=== PATIENT | male | born 1960 | race Caucasian/White ===

== ENCOUNTER 2016-09-04 03:55 | Emergency (ER) | payer SELFPAY ==
[2016-09-04 03:56] VITALS: BMI 40.3
[2016-09-04 04:12] VITALS: TEMP 98.4
[2016-09-04] MEDS ORDERED: CYCLOBENZAPRINE 10 MG TAB PO STA (04:12)
[2016-09-04] MEDS ORDERED: OXYCODONE HCL 5 MG TABLET PO STA (04:12)
[2016-09-04] MEDS ORDERED: IBUPROFEN 600 MG TAB PO STA (04:12)
--- NOTE | 2016-09-04 04:16 | EDPRACDOC ---
- General Information Chief Complaint: Back Pain Stated Complaint: NECK & SHOULDER PAIN Time Seen by Provider: 09/04/16 04:05 Information Source: Patient Mode Of Arrival: Walk Home Medications: Home Medications Alprazolam [Xanax] 1 mg PO Q6-8H #30 tablet 06/19/15 Aspirin 325 mg PO DAILYWM #100 tablet 06/19/15 Atorvastatin Calcium [Lipitor] 40 mg PO HS #30 tablet 06/19/15 Carvedilol [Coreg] 3.125 mg PO BID #60 tablet 06/19/15 Nitroglycerin Sublingual Tab [NTG (NitroStat Sublingual Tab)] 0.4 mg SL PRN PRN #30 tablet 06/19/15 Cyclobenzaprine HCl [Flexeril] 5 mg PO Q8H PRN #20 tablet 09/04/16 Ibuprofen Tablet [Motrin] 600 mg PO Q6H #30 tab 09/04/16 Oxycodone HCl [Roxicodone] 5 mg PO Q4-6H PRN #15 tablet 09/04/16 Allergies/Adverse Reactions: Allergies Allergy/AdvReac Type Severity Reaction Status Date / Time codeine Allergy Nausea/Vomi Verified 09/04/16 04:13 ting - History of Present Illness Onset: 1 day HPI: PT PRESENTS WITH RIGHT UPPER BACK PAIN LIKE PRIOR EPISODES OF TORTICOLLIS. Pain Location: Reports: Right, Thoracic Pain Radiates To: Reports: None Relevant History: Reports: Chronic back pain Pain Severity: Reports: Moderate Pain Quality: Reports: Aching, Sharp Worsened By: Reports: Movement Associated Signs and Symptoms: Denies: Abdominal Pain, Dysuria, Hematuria, Nausea, Vomiting ED Past Medical History - History Reviewed Yes Nurses notes reviewed and agree except as marked - Patient Medical History Cardiac History: Reports: Hypertension, Hypercholesterolemia GI/ History: Reports: Kidney Stones Musculoskeletal History: Reports: Arthritis (and neck pain starting 04/2015.), Gout Psychological History: Denies: Depression, Substance Use Disorder Systemic History: Denies: Anemia Surgical History: Reports: Other (sebaceous cyst on back removal 2002 Dr. Evans. Izabel white) - Family Medical History Reports: Hypertension, Diabetes (Mother), Cardiac Disorders (MGF: had [place], thinks he was over 60 yo. Mother: CHF 61yo.), Respiratory Disorders (Father : lung problems from asbestos, alive in late 70's.) - Social Medical History Smoking Status: Heavy tobacco smoker (5 or more cigarettes/day or daily pipe/ cigar) Social History: Denies: Substance Use Disorder Lives In: Home EDM Review of Systems - Review of Systems ROS Negative Except as Marked: Yes All systems reviewed and were negative except as marked Musculoskeletal: Back (RIGHT UPPER THORACIC PAIN) - Physical Exam Constitutional: Alert Oriented to: Time, Person, Place Last recorded Vital Signs: Last Vital Signs Temp 98.4 F 09/04/16 04:06 Pulse 85 09/04/16 04:06 Resp 18 09/04/16 04:06 BP 177/89 09/04/16 04:06 Pulse Ox 98 09/04/16 04:06 Oxygen Pulse Oxygen Saturation 98 O2 Device Room Air Oxygen Flow Rate Fraction of Inspired Oxygen ( FIO2) - HEENT Head: negative: Deformity, Laceration Eye Exam: negative: Conjunctival Injection, Pale Conjunctiva Oropharynx: negative: Membranes Dry Nose: negative: Congestion, Discharge Neck: negative: Limited ROM - Respiratory/Cardiovascular Respiratory: Normal - CTA. negative: Accessory Muscle Use, Diminished, Tachypnea Cardiovascular: negative: Bradycardia, Tachycardia, Irregular - Musculoskeletal Back: negative: Thoracic Step-off, Lumbar Step-off, Lumbar TTP - Integumentary Skin: Warm, Dry. negative: Rash - Neurologic Memory Impaired: Normal Motor Function: Normal Mood Description: Anxious, Appropriate Thought: Coherent Perception: Normal ED Back Exam - Neurologic Motor Deficit: None - Musculoskeletal Thoracic: Spasm (RIGHT PARASPINAL MUSCULATURE) Decision Time to Discharge: 04:16 - Departure Yes I personally saw and evaluated the patient. Disposition: Home Condition: Stable Final Diagnosis: Spasm of thoracic back muscle Instructions: Thoracic (Lumbar) Strain, Muscle Spasm (ED) Education/Counseling Given To: Patient Education/Counseling Given Regarding: Diagnosis, Treatment, Prognosis, Follow Up Referrals: None,No Provider [Primary Care Provider] - One Week Jonathon Gonzalez MD [Staff Physician] - As Needed Prescriptions: Cyclobenzaprine HCl [Flexeril] 5 mg PO Q8H PRN #20 tablet PRN Reason: Muscle Spasms Ibuprofen Tablet [Motrin] 600 mg PO Q6H #30 tab Oxycodone HCl [Roxicodone] 5 mg PO Q4-6H PRN #15 tablet PRN Reason: Breakthrough Pain
[2016-09-04 04:50] VITALS: BP 170/83; PULSE 81
== END 2016-09-04 04:48 | disposition home or self-care (01) ==
LOC: ED 03:55
DX: M62.830 Muscle spasm of back (principal); I10 Essential (primary) hypertension; E78.00 Pure hypercholesterolemia, unspecified; M10.9 Gout, unspecified; F17.200 Nicotine dependence, unspecified, uncomplicated; Z79.899 Other long term (current) drug therapy
CPT/HCPCS: 99284; J3490